=== PATIENT | female | born 1995 | race Caucasian/White ===

== ENCOUNTER 2017-01-07 19:32 | Inpatient (IN) | payer OTHER ==
[~2017-01-07] VITALS: Ht 167.6 cm; Wt 88.9 kg
[2017-01-08 15:09] LABS: HEMOGLOBIN 12.9 gm/dl (12.3-15.3); RED BLOOD COUNT 4.49 M/UL (4.00-5.10); WHITE BLOOD COUNT 12.8 K/UL (4.5-11.0)
[2017-01-10 03:13] LABS: HEMOGLOBIN 11.1 gm/dl (12.3-15.3)
== END 2017-01-11 15:26 | disposition home or self-care (01) | DRG 766 ==
LOC: GENOP 19:32 → OB 01-08 04:52
PROVIDERS: Obstetrics & Gynecology; ADMIT Obstetrics & Gynecology
PROC: 10907ZC Drainage of Amniotic Fluid, Therapeutic from Products of Conception, Via Natural or Artificial Opening (ICD-10-PCS; 2017-01-09)
PROC: 10D00Z1 Extraction of Products of Conception, Low, Open Approach (ICD-10-PCS; principal; 2017-01-09 12:25)
DX: O48.0 Post-term pregnancy (principal); Z3A.40 40 weeks gestation of pregnancy; Z37.0 Single live birth; O69.81X0 Labor and delivery complicated by cord around neck, without compression, not applicable or unspecified; O76 Abnormality in fetal heart rate and rhythm complicating labor and delivery; O99.824 Streptococcus B carrier state complicating childbirth; O99.334 Smoking (tobacco) complicating childbirth; F17.210 Nicotine dependence, cigarettes, uncomplicated
CPT/HCPCS: 36415; 81001; 82800; 83518; 85014; 85018; 85025; 90715; C9113; G0463; J0690; J2274; J2370; J2405; J2590; J2765; J2795; J3010; J3105; J7120

== ENCOUNTER 2017-02-15 22:29 | Observation (INO) | payer OTHER ==
[~2017-02-15] VITALS: Ht 168.9 cm; Wt 81.6 kg
[2017-02-16 00:17] LABS: HEMOGLOBIN 12.9 gm/dl (12.3-15.3); RED BLOOD COUNT 4.59 M/UL (4.00-5.10); WHITE BLOOD COUNT 13.8 K/UL (4.5-11.0)
[2017-02-16 00:35] LABS: BUN/CREATININE RATIO 10 (0-10)
[2017-02-17 05:04] LABS: HEMOGLOBIN 10.1 gm/dl (12.3-15.3); RED BLOOD COUNT 3.71 M/UL (4.00-5.10); WHITE BLOOD COUNT 9.3 K/UL (4.5-11.0)
[2017-02-17 05:13] LABS: BUN/CREATININE RATIO 10 (0-10)
[2017-02-18] MEDS ORDERED: LORTAB 5-325 M1 EACH PO (11:19)
[2017-02-18] MEDS ORDERED: OMNICEF 300 MG300 MG PO (11:19)
== END 2017-02-18 13:18 | disposition home or self-care (01) ==
LOC: ER1 22:29 → ZEROF 02-16 02:51 → MED SURG 4 02-16 07:56
PROVIDERS: Emergency Medicine; Internal Medicine; ADMIT Internal Medicine
DX: N10 Acute pyelonephritis (principal); N30.90 Cystitis, unspecified without hematuria; B96.20 Unspecified Escherichia coli [E. coli] as the cause of diseases classified elsewhere; E87.6 Hypokalemia; A41.9 Sepsis, unspecified organism; Z79.891 Long term (current) use of opiate analgesic; Z79.899 Other long term (current) drug therapy
CPT/HCPCS: 36415; 80048; 80053; 81001; 83605; 83690; 84703; 85025; 85027; 87040; 87077; 87086; 87186; 93005; 96374; 96375; 99285; G0378; J0696; J1885; J2270; J2405; J2765; J7030; J7050; Q9962